=== PATIENT | female | born 1945 | race Hispanic/Latino ===

== ENCOUNTER → 2018-06-12 | Outpatient (CLI) | payer MEDICARE ==
[~2018-06-12] MED LIST: FURO40TA7 PO; GLIM4TAB3 PO; LISI40TA4 PO; METF-446 PO; PANT40TA PO; PROP40TA7 PO; SPIR50TA5 PO; iron PO; multivitamin PO
== END | disposition home or self-care (01) ==
LOC: RAH 08:29
PROVIDERS: ATTEND Internal Medicine
DX: K74.60 Unspecified cirrhosis of liver (principal)
CPT/HCPCS: 76700; 93975

== ENCOUNTER → 2019-04-13 | Outpatient (CLI) | payer MEDICARE ==
[~2019-04-13] MED LIST changes: -GLIM4TAB3 PO; +GLIM4TAB36 PO
== END | disposition home or self-care (01) ==
LOC: RAH 08:23
PROVIDERS: ATTEND Internal Medicine Gastroenterology
DX: K74.60 Unspecified cirrhosis of liver (principal); K76.6 Portal hypertension
CPT/HCPCS: 76700; 93975

== ENCOUNTER → 2020-01-11 | Outpatient (CLI) | payer MEDICARE ==
[~2020-01-11] MED LIST changes: +ALBUMIN (HUMAN) 25% 200 ML IV SCH
[2020-01-11 13:56] LABS: APPEARANCE BODY FLUID CLEAR (CLEAR); COLOR,BODY FLUID YELLOW (LT YELLOW); SPECIMENTYPE,BODY FLUID ASCITES; TOTAL VOLUME,BODY FLUID 1300 mL
[2020-01-11 13:57] LABS: BODY FLUID RBC 542 /cu. mm.; BODY FLUID WBC 97 /cu. mm.
[2020-01-11 14:27] LABS: ALBUMIN,BODY FLUID < 0.6 g/dL
[2020-01-11 14:29] LABS: BF LYMPHOCYTE 65 %; BF MESOTHELIAL 25 %; BF MONOCYTE 4 %
== END ==
LOC: RAH 09:41
PROVIDERS: ATTEND Internal Medicine Gastroenterology
DX: R18.8 Other ascites (principal)
CPT/HCPCS: 49083; 82042; 84157; 87071; 87205; 89051; A4215

== ENCOUNTER 2020-02-01 06:18 | Day surgery (SDC) | payer MEDICARE ==
[~2020-02-01] VITALS: Ht 162.6 cm; Wt 77.1 kg
[2020-02-01] VITALS (8 sets, daily range): BP systolic 98–181; BP diastolic 34–55
[~2020-02-01 06:18] MED LIST changes: -ALBUMIN (HUMAN) 25% 200 ML IV SCH
[2020-02-01] MEDS ORDERED: SODIUM CHLORIDE 0.9% 1000ML 1,000 ML IV ONE (06:21)
[2020-02-01] MEDS ORDERED: LINA5TAB PO (07:58)
[2020-02-01] MEDS ORDERED: MIDAZOLAM HCL 1 MG/ML 2ML VIAL ONE (08:40)
[2020-02-01] MEDS ORDERED: PROPOFOL 10 MG/ML 20ML VIAL IV ONE (08:40)
--- NOTE | 2020-02-01 08:55 | NUR ---
Pt received Pt received from PACU via stretcher accompanied by ROBERTH Boyle. Pt sleeping comfortable with o2 via face mask on. VS wnl. No distress noted
--- NOTE | 2020-02-01 09:30 | NUR ---
D/C Pt prepared for discharge. Pt awake/alert and oriented. Instructions given to pt's son (Layo) over the phone with follow up appointment time and date. Verbalized understanding. Verbal instructions also given to pt. Pt was the taken to private vehicle via w/c in no distress. Pt very grateful for care.
== END 2020-02-01 09:40 ==
LOC: ENDO 06:18 → DAH 06:18 → ENDO 09:40
PROVIDERS: ATTEND Internal Medicine Gastroenterology
DX: K74.60 Unspecified cirrhosis of liver (principal); K29.50 Unspecified chronic gastritis without bleeding; D64.9 Anemia, unspecified; I85.10 Secondary esophageal varices without bleeding; K76.0 Fatty (change of) liver, not elsewhere classified; K21.9 Gastro-esophageal reflux disease without esophagitis; I12.9 Hypertensive chronic kidney disease with stage 1 through stage 4 chronic kidney disease, or unspecified chronic kidney disease; E11.22 Type 2 diabetes mellitus with diabetic chronic kidney disease; N18.4 Chronic kidney disease, stage 4 (severe); E78.5 Hyperlipidemia, unspecified; Z88.2 Allergy status to sulfonamides; Z88.1 Allergy status to other antibiotic agents; Z79.899 Other long term (current) drug therapy
CPT/HCPCS: 43239; 82948; 88305; 88342; 93005 ×2; A4215; A4221; A4222; A4223; A4606; A4620; A4657; A4663; C9803; J2250; J2704; J7030; U0003; 36415